=== PATIENT | male | born 1985 | race Hispanic/Latino ===

== ENCOUNTER 2020-01-06 22:33 | Emergency (ER) | payer OTHER ==
--- OUTSIDE RECORDS SUMMARY | 2020-01-06 22:51 | XMS REPORT | Continuity of Care Document ---
:1985 Author Organization [facility] t Address [address] [place] [address] Care Team Providers Name Role Phone 1, Sleep Lab Bed Attending Clinician Unavailable Doctor Unassigned, Name Attending Clinician Unavailable Problems This patient has no known problems. Allergies, Adverse Reactions, Alerts This patient has no known allergies or adverse reactions. Medications This patient has no known medications. Procedures This patient has no known procedures. Encounters Start End Encounter Admission Attending Care Care Encounter Source Date/Time Date/Time Type Type Clinicians Facility Department ID 2019-08-14 2019-08-14 Construction Cost Estimator 1, Valente [facility] [id number] 14:09:54 16:39:54 Visit Sleep Lab [place] [id number] [facility] [id number] [place] [id number] 2019-08-14 2019-08-14 Orders Doctor OXANA [id number] 00:00:00 00:00:00 Only UnassignedJOSELITO [id number] [place] [facility] [id number] Results This patient has no known results.
[2020-01-06 23:54] LABS: Absolute Lymphocytes (CBC) 2.6 K/uL (0.7-4.9); Basophils % 0.7 % (0-1.3); Hematocrit 48.4 % (39.6-49.0); Lymphocytes % 23.3 % (15.3-44.8); MPV 9.1 fL (7.6-11.3); RBC Red Blood Cell Count 5.46 M/uL (4.33-5.43)
[2020-01-07 00:08] LABS: Urine Blood NEGATIVE (NEG); Urine Glucose NEGATIVE (NEG); Urine Protein 2+ (NEG); Urine Specific Gravity >1.030 (1.005-1.030)
[2020-01-07 00:10] LABS: ALT/SGPT 62 U/L (12-78); AST/SGOT 32 U/L (15-37); Albumin 3.6 g/dL (3.4-5.0); Alkaline Phosphatase 80 U/L (45-117); BUN Blood Urea Nitrogen 12 mg/dL (7-18); Bicarbonate 26 mmol/L (21-32); Bilirubin Direct < 0.1 mg/dL (0-0.2); Bilirubin Total 0.3 mg/dL (0.2-1.0); Glucose Level 129 mg/dL (74-106); Lipase 65 U/L (73-393); Potassium 3.9 mmol/L (3.5-5.1); Protein, Total 7.7 g/dL (6.4-8.2); Sodium Level 138 mmol/L (136-145)
--- NOTE | 2020-01-07 01:10 | EDPHYS ---
Physician Documentation [facility] Name: Luis Fernando Milner Jr Age: 34 yrs Sex: Male : 1985 Arrival Date: 01/06/2020 Time: 22:37 Bed 26 Private MD: ED Physician Juliette Son HPI: 01/05 22:48 This 34 yrs old Male presents to ER via Ambulatory with complaints of Side jmm Pain. 22:48 The patient has shortness of breath at rest. Onset: The symptoms/episode began/occurred jmm gradually, 1 day(s) ago. Duration: The symptoms are continuous. This is a 34 year old male with a history of TBI, depression, htn that presents to the ED with complaints of right flank pain radiating into his right lower abdominal region. Denies fever, vomiting, scrotal pain. . Historical: - Allergies: 23:07 No Known Allergies; vc - Home Meds: 23:07 "something for depression and anxiey" [Active]; "for nightmares" [Active]; vc - PMHx: 23:07 PTSD; Traumatic Brain Injury; Depression; Anxiety; Hypertension; Doesn't take vc medications; Diabetes - NIDDM; "I have medicine I just don't take it; - PSHx: 23:07 elbow; vc - Immunization history:: Adult Immunizations up to date. - Social history:: Smoking status: Patient reports the use of cigarette tobacco products, smokes one pack cigarettes per day. 1/2-1 pack a day.. ROS: 22:48 Constitutional: Negative for fever, chills, and weight loss, Cardiovascular: Negative jmm for chest pain, palpitations, and edema, Respiratory: Negative for shortness of breath, cough, wheezing, and pleuritic chest pain. 22:48 Abdomen/GI: Positive for abdominal pain. 22:48 Back: Positive for flank pain, on the right. 22:48 All other systems are negative. Exam: 22:48 Constitutional: This is a well developed, well nourished patient who is awake, alert, jmm and in no acute distress. Head/Face: atraumatic. Eyes: EOMI, no conjunctival erythema appreciated ENT: Moist Mucus Membranes Neck: Trachea midline, Supple Chest/axilla: Normal chest wall appearance and motion. Cardiovascular: Regular rate and rhythm. No edema appreciated Respiratory: Normal respirations, no respiratory distress appreciated 22:48 Skin: General appearance color normal MS/ Extremity: Moves all extremities, no obvious deformities appreciated, no edema noted to the lower extremities Neuro: Awake and alert, normal gait Psych: Behavior is normal, Mood is normal, Patient is cooperative and pleasant 22:48 Abdomen/GI: Inspection: abdomen appears normal, Bowel sounds: normal, Palpation: nontender, moderate abdominal tenderness, in the right lower quadrant. 22:48 Back: CVA tenderness, is absent. Vital Signs: 22:45 BP 147 / 89; Pulse 99; Resp 14; Temp 98.2(O); Pulse Ox 95% on R/A; Weight 190.51 kg; vc Height 5 ft. 8 in. (172.72 cm); Pain 01/19; 01/06 01:00 BP 138 / 88; Pulse 88; Resp 15; Pulse Ox 94% on R/A; vc 01/05 22:45 Body Mass Index 63.86 (190.51 kg, 172.72 cm) vc MDM: 01/05 22:48 Patient medically screened. [facility] 01/06 01:08 Data reviewed: vital signs, nurses notes. Counseling: I had a detailed discussion with [facility] the patient and/or guardian regarding: the historical points, exam findings, and any diagnostic results supporting the discharge/admit diagnosis, lab results, radiology results, the need for outpatient follow up, to return to the emergency department if symptoms worsen or persist or if there are any questions or concerns that arise at home. ED course: Patient is alert and non toxic in appearance in the ED. Patient is advised to return to the ED if symptoms worsen, including early appendicitis return precautions. Patient understood and agrees with the plan of care. . 01/05 22:57 Order name: Basic Metabolic Panel; Complete Time: 00:15 [facility] 01/05 22:57 Order name: CBC with Diff; Complete Time: 23:59 [facility] 01/05 22:57 Order name: Hepatic Function; Complete Time: 00:15 [facility] 01/05 22:57 Order name: Lipase; Complete Time: 00:15 [facility] 01/05 22:57 Order name: CT Stone Protocol [facility] 01/05 23:26 Order name: Urine Dipstick--Ancillary (enter results); Complete Time: 00:09 [facility] 01/05 22:57 Order name: IV Saline Lock; Complete Time: 23:17 [facility] 01/05 22:57 Order name: Labs collected and sent; Complete Time: 23:17 [facility] 01/05 22:57 Order name: Urine Dipstick-Ancillary (obtain specimen); Complete Time: 23:17 [facility] Administered Medications: 01:24 Drug: [place] 10 mg-325 mg 1 tabs Route: PO; vc 01:24 Follow up: Response: No adverse reaction vc Disposition: 03:52 Co-signature as Attending Physician, Juliette Son MD. ma2 Disposition: 01/07/20 01:09 Discharged to Home. Impression: Lower abdominal pain, unspecified. - Condition is Stable. - Discharge Instructions: Abdominal Pain, Adult. - Medication Reconciliation Form, Thank You Letter, Antibiotic Education, Prescription Opioid Use form. - Follow up: Private Physician; When: 2 - 3 days; Reason: Recheck today's complaints, Continuance of care, Re-evaluation by your physician. Signatures: Dispatcher [employer] EDMS Morales Arvizu PA PA Juliette Glez MD MD ma2 Vi Amin, RN RN vc Corrections: (The following items were deleted from the chart) 01:26 01:09 01/07/2020 01:09 Discharged to Home. Impression: Lower abdominal pain, vc unspecified. Condition is Stable. Forms are Medication Reconciliation Form, Thank You Letter, Antibiotic Education, Prescription Opioid Use. Follow up: Private Physician; When: 2 - 3 days; Reason: Recheck today's complaints, Continuance of care, Re-evaluation by your physician. [facility]
--- NOTE | 2020-01-07 01:10 | ER ---
Nurse's Notes [facility] Name: Luis Fernando Milner Jr Age: 34 yrs Sex: Male : 1985 Arrival Date: 01/06/2020 Time: 22:37 Bed 26 Private MD: Diagnosis: Lower abdominal pain, unspecified Presentation: 01/05 22:45 Chief complaint: Patient states: "Last night I was nauseous and felt hot, my took vc my temperature and said I wasn't running a fever, today I am having abdominal pain that hurts worse when I breath or when I move.". Coronavirus screen: Patient denies a cough. Patient denies shortness of breath or difficulty breathing. Patient denies measured and/or subjective temperature greater than 100.4F prior to today's visit. Patient denies travel on a cruise ship or to a country the [facility] currently lists as an affected area. Patient denies contact with known and/or suspected case of COVID-19. Proceed with normal triage. Ebola Screen: No symptoms or risks identified at this time. 22:45 Method Of Arrival: Ambulatory vc 22:45 Initial Sepsis Screen: Does the patient meet any 2 criteria? HR > 90 bpm. No. Patient's vc initial sepsis screen is negative. Does the patient have a suspected source of infection? No. Patient's initial sepsis screen is negative. Risk Assessment: Do you want to hurt yourself or someone else? Patient reports no desire to harm self or others. Onset of symptoms was January 05, 2020. 22:45 Acuity: ANIBAL 3 vc Historical: - Allergies: 23:07 No Known Allergies; vc - Home Meds: 23:07 "something for depression and anxiey" [Active]; "for nightmares" [Active]; vc - PMHx: 23:07 PTSD; Traumatic Brain Injury; Depression; Anxiety; Hypertension; Doesn't take vc medications; Diabetes - NIDDM; "I have medicine I just don't take it; - PSHx: 23:07 elbow; vc - Immunization history:: Adult Immunizations up to date. - Social history:: Smoking status: Patient reports the use of cigarette tobacco products, smokes one pack cigarettes per day. 1/2-1 pack a day.. Screenin:00 Abuse screen: Denies threats or abuse. Nutritional screening: No deficits noted. vc Tuberculosis screening: No symptoms or risk factors identified. Fall Risk None identified. Assessment: 22:57 General: Appears in no apparent distress. uncomfortable, obese, Behavior is calm, vc cooperative, appropriate for age. Pain: Complains of pain in anterior aspect of right lateral abdomen and right upper quadrant Pain does not radiate. Pain currently is 9 out of 10 on a pain scale. Quality of pain is described as stabbing, Pain began 1 day ago. Is continuous, Alleviated by rest, Aggravated by increased activity, repositioning, Noted to be grimacing, guarding, resistant to movement, Also complains of nausea. Neuro: Level of Consciousness is awake, alert, obeys commands, Oriented to person, place, time, situation, Appropriate for age. Cardiovascular: Patient's skin is warm and dry. Respiratory: Airway is patent Respiratory effort is even, unlabored. GI: Reports upper abdominal pain, nausea. :. Vital Signs: 22:45 BP 147 / 89; Pulse 99; Resp 14; Temp 98.2(O); Pulse Ox 95% on R/A; Weight 190.51 kg; vc Height 5 ft. 8 in. (172.72 cm); Pain 8/10; 01/06 01:00 BP 138 / 88; Pulse 88; Resp 15; Pulse Ox 94% on R/A; vc 01/05 22:45 Body Mass Index 63.86 (190.51 kg, 172.72 cm) vc ED Course: 01/05 22:37 Patient arrived in ED. cl3 22:45 Vi Amin, RN is Primary Nurse. vc 22:46 Morales Arvizu PA is PHCP. jmm 22:46 Juliette Son MD is Attending Physician. jmm 23:00 Arm band placed on. vc 23:00 Patient has correct armband on for positive identification. Bed in low position. Call vc light in reach. Pulse ox on. NIBP on. 23:02 Triage completed. vc 01/06 00:10 CT Stone Protocol In Process Unspecified. EDMS 01:25 No provider procedures requiring assistance completed. IV discontinued, intact, vc bleeding controlled, No redness/swelling at site. Pressure dressing applied. Administered Medications: :24 Drug: [place] 10 mg-325 mg 1 tabs Route: PO; vc 01:24 Follow up: Response: No adverse reaction vc Outcome: 01:09 Discharge ordered by MD. nova 01:26 Discharged to home ambulatory. vc 01:26 Condition: good 01:26 Discharge instructions given to patient, Instructed on discharge instructions, follow up and referral plans. Demonstrated understanding of instructions, follow-up care. 01:26 Patient left the ED. vc Signatures: Dispatcher [employer] EDMS Morales Arvizu PA PA jmm Lewis, Charde cl3 Vi Amin RN RN vc
[2020-01-07] MEDS ORDERED: HYDROCODONE/APAP 10/325 TAB ONE (01:30)
[2020-01-07 01:33] VITALS: TEMP 98.2
[2020-01-07 01:42] VITALS: BP 138/88; O2SAT 94
--- NOTE | 2020-01-08 09:42 | RAD REPORT ---
EXAM DESCRIPTION: CT Abdomen and Pelvis Without Intravenous Contrast CLINICAL HISTORY: The patient is 34 years old and is Male; right flank pain TECHNIQUE: Axial computed tomography images of the abdomen and pelvis without intravenous contrast. Sagittal and coronal reformatted images were created and reviewed. This CT exam was performed usi ng one or more of the following dose reduction techniques: automated exposure control, adjustment o f the mA and/or kV according to patient size, and/or use of iterative reconstruction technique. COMPARISON: No relevant prior studies available. FINDINGS: LIMITATIONS: Suboptimal study secondary to artifact related to patient body habitus. LUNG BASES: Unremarkable. No mass. No consolidation. ABDOMEN: LIVER: The liver is enlarged and diffusely fatty. GALLBLADDER AND BILE DUCTS: No calcified stones. No ductal dilation. PANCREAS: Unremarkable. No ductal dilation. SPLEEN: Unremarkable. ADRENALS: Unremarkable. No mass. KIDNEYS AND URETERS: No obstructing stones. No hydronephrosis. No perinephric fluid. STOMACH AND BOWEL: The stomach is minimally distended with food contents. The small bowel is nor mal in caliber. Stool is present throughout colon. There is no mucosal thickening or evidence of margarita l obstruction. PELVIS: APPENDIX: The appendix is normal in caliber without surrounding inflammation. BLADDER: The bladder is incompletely distended. No stones. REPRODUCTIVE: Unremarkable as visualized. ABDOMEN and PELVIS: INTRAPERITONEAL SPACE: Unremarkable. No free air. No significant fluid collection. BONES/JOINTS: Bilateral pars defects are present at L5 without evidence of anterolisthesis. No a cute fracture. SOFT TISSUES: The soft tissues are normal. VASCULATURE: Unremarkable. No abdominal aortic aneurysm. LYMPH NODES: Unremarkable. No enlarged lymph nodes. IMPRESSION: No acute findings on this noncontrasted CT of the abdomen and pelvis to explain the monserrat ent's symptoms. Electronically signed by: Lee Ann Magallon MD 01/07/2020 12:24 AM CDT Due to temporary technical issues with the PACS/Fluency reporting system, reports are being signed by the in house radiologist without review as a courtesy to ensure prompt reporting. The interpreting r adiologist is fully responsible for the content of the report.
== END 2020-01-07 01:26 | disposition home or self-care (01) ==
LOC: ER 22:33
DX: R10.30 Lower abdominal pain, unspecified (principal); I10 Essential (primary) hypertension; F17.210 Nicotine dependence, cigarettes, uncomplicated; Z87.820 Personal history of traumatic brain injury
CPT/HCPCS: 36415; 74176; 76377; 80048; 80076; 81003; 83690; 85025; 99283